=== PATIENT | female | born 1960 ===

== ENCOUNTER → 2021-12-10 | Outpatient (CLI) | payer OTHER | LOC: LAB SHORT 08:52 → LAB 08:52 | DX: R30.0 Dysuria (principal) | CPT/HCPCS: 87077; 87086; 87186 ==

== ENCOUNTER → 2022-01-07 | Outpatient (CLI) | payer OTHER | END | disposition home or self-care (01) | LOC: LAB SHORT 14:30 | DX: R30.0 Dysuria (principal) | CPT/HCPCS: 87077; 87086; 87186 ==

== ENCOUNTER → 2022-03-26 | Outpatient (CLI) | payer OTHER | LOC: LAB SHORT 10:50 → LAB 10:50 | DX: R30.0 Dysuria (principal) | CPT/HCPCS: 87077; 87086; 87186 ==